=== PATIENT | female | born 1960 | race Caucasian/White ===

== ENCOUNTER → 2017-02-28 | Outpatient (CLI) | payer BC ==
--- NOTE | 2017-02-28 15:52 | KCIC ---
MR of the pelvis-athletic pubalgia protocol and MR of the left hip TECHNIQUE: Standard 4 plane sequences are obtained through the pubic symphysis region. Separate dedicated MR images are obtained through the left hip. Anterior midline pelvis: There is abnormal fluid signal between the left pubic bone and the left rectus abdominis-adductor longus aponeurosis with a cleft sign adjacent to the left pubic body, compatible with a tear of the aponeurosis. Tear also extends into the proximal adductor longus tendon at its attachment. The right rectus abdominis-adductor longus aponeurosis is intact. The pubic symphysis is intact without separation or abnormal fluid. Left hip: Small lesion at the subcortical aspect of the anterior left femoral head and neck junction, likely a small subcortical cyst. No aggressive bone lesion or bone destruction. No acute fracture. No significant joint effusion. No advanced primary osteoarthritis of the left hip. No evidence of labral tear. Gluteus minimus and medius tendons intact. Hamstring tendon intact. Iliopsoas tendon intact. Rectus femoris tendon attachment intact. Edema at the left rectus abdominis-adductor longus aponeurosis is again identified, fully evaluated above. IMPRESSION: Findings compatible with a tear of the left rectus abdominis-adductor longus aponeurosis and extending into the proximal left abductor longus tendon. Electronically signed by: Patrick Mancuso MD (02/28/2017 3:48 PM) [id number]
== END | disposition home or self-care (01) ==
LOC: KCIC MRI 14:04
PROVIDERS: ATTEND Orthopaedic Surgery
DX: S76.012A Strain of muscle, fascia and tendon of left hip, initial encounter (principal); X58.XXXA Exposure to other specified factors, initial encounter; Y93.89 Activity, other specified; Y92.89 Other specified places as the place of occurrence of the external cause; Y99.8 Other external cause status
CPT/HCPCS: 72195; 73721

== ENCOUNTER → 2017-09-19 | Outpatient (CLI) | payer BC | END | disposition home or self-care (01) | LOC: KCIC MRI 12:46 | DX: S83.242A Other tear of medial meniscus, current injury, left knee, initial encounter (principal); M76.52 Patellar tendinitis, left knee; M25.462 Effusion, left knee; X58.XXXA Exposure to other specified factors, initial encounter; Y93.89 Activity, other specified; Y92.89 Other specified places as the place of occurrence of the external cause; Y99.8 Other external cause status | CPT/HCPCS: 73721 ==